=== PATIENT | male | born 1965 | race Caucasian/White ===

== ENCOUNTER 2020-07-22 12:40 | Emergency (ER) | payer SELFPAY ==
--- NOTE | 2020-07-22 13:07 | EDM.PDOC ---
ED HPI GENERAL MEDICAL PROBLEM - General Chief Complaint: Neurological Problem Stated Complaint: NUMBNESS IN FINGERS Time Seen by Provider: 07/22/20 12:49 Source of Information: Reports: Patient History Limitations: Reports: No Limitations - History of Present Illness INITIAL COMMENTS - FREE TEXT/NARRATIVE: HISTORY AND PHYSICAL: History of present illness: Patient is a 54-year-old male who presents to the emergency room with complaints of bilateral hand numbness and tingling intermittently over the past several weeks. His initial concern was that his hands were "swollen" as he has not been taking his medications over the past several days due to them running out (he travels with work, will be here 1 month). He has gone without medications for a week or two at a time and states this is "never happened before". Describes the sensation as his "hands are asleep" although he is still able to use them appropriately and sensation is the same bilaterally. Denies and one sided weakness or stroke like symptoms. States he has intermittent "chest fullness" but denies chest pain. Patient denies any fever, chills, headache, change in vision, syncope or near syncope. Denies any chest pain, back pain, shortness of breath or cough. Denies any abdominal pain, nausea, vomiting, diarrhea, constipation or dysuria. Has not noted any blood in urine or stool. Patient has been eating and drinking appropriately. Review of systems: As per history of present illness and below otherwise all systems reviewed and negative. Past medical history: As per history of present illness and as reviewed below otherwise noncontributory. Surgical history: As per history of present illness and as reviewed below otherwise noncontributory. Social history: See social history for further information Family history: As per history of present illness and as reviewed below otherwise noncontributory. Physical exam: General: Well developed and well nourished. Alert and orientated x 3. Nontoxic in appearance and in no acute distress. Vital signs are stable and have been reviewed by me. Nursing notes were reviewed. HEENT: Atraumatic, normocephalic, pupils equal and reactive bilaterally, negative for conjunctival pallor or scleral icterus, mucous membranes moist, TMs normal bilaterally, throat clear, neck supple, nontender, trachea midline. No drooling or trismus noted. No meningeal signs. No hot potato voice noted. Lungs: Clear to auscultation bilaterally. No wheezes, rales, or rhonchi. Chest nontender. Normal work of breathing, no accessory muscles used. Heart: S1S2, regular rate and rhythm without overt murmur, gallops, or rubs. No JVD. No peripheral edema Abdomen: Soft, nondistended, nontender. Normoactive bowel sounds. Negative for masses or costovertebral tenderness. Pelvis: Stable nontender. Genitourinary/Rectal: Deferred. Skin: Intact, warm, dry. No lesions or rashes noted. Hematologic: No petechiae or purpra. Mucosa appropriate color and normal nail bed color and refill. Extremities: Atraumatic, moves all extremities per self without difficulty or deficits, negative for cords or calf pain. Neurovascular unremarkable. Neuro: Awake, alert, oriented. Cranial nerves II through XII unremarkable. Cerebellum unremarkable. Motor and sensory unremarkable throughout. Exam nonfocal. Psychiatric: Mood and affect are appropriate. Normal thought process. Answering questions appropriately. Notes: *This patient was seen and evaluated during the 2019 SARS-CoV-2 novel coronavirus pandemic period. Community viral transmission is ongoing at time of this encounter and the emergency department is operating under pandemic response procedures. Patient's physical exam is within normal limits. He complains of the sensation of paresthesias to bilateral hands from the forearm downwards although he is able to grasp firmly and has good sensation bilaterally. He is adamant that he is concerned that he needs lab work done. We will do basic cardiac enzymes, EKG and chest x-ray. AST and ALT are slightly elevated. Chest x-ray is unremarkable. Vital signs are stable. The numbness and tingling sensation could be from the lack of medications, swelling or nerve impingement.. At this time I do not feel there is any further diagnostics warranted through the emergency room. I would like him to resume his home medications as directed and follow-up with primary care. I have talked with the patient about today's findings, in addition to providing specific details for plan of care. Reassessment at the time of disposition demonstrates that the patient is in no acute distress. The patient is stable for discharge, counseling was provided and we discussed in great detail signs and symptoms that would prompt them to return to the Emergency Department. Medication, follow up and supportive care measures were reviewed and discussed. Voices understanding and is agreeable to plan of care. Denies any further questions or concerns at this time. Diagnostics: CBC, CMP, Troponin, EKG, CXR, UA Therapeutics: None Prescription: Refill Home Meds: Lasix, Metformin, Carvedilol, Lisinopril Amiodarone Impression: Encounter for medication refill Paraesthesia Plan: 1. You were evaluated today on an emergent basis. Your lab work, chest x-ray, EKG are within normal limits. The numbness and tingling sensation could be from your lack of medications, swelling or nerve impingement. Please take your medications as directed. We are only able to give you a 2-week supply of your medications through an emergency room. You should follow up with your primary care provider for reevaluation and further management. 2. You can alternate Tylenol and ibuprofen as needed for pain and fever management. 3. If your symptoms should worsen, new symptoms develop or any of the signs and symptoms we discussed should arise please return to the emergency room or call 911 (if needed). Definitive disposition and diagnosis as appropriate pending reevaluation and review of above. 2 Pain Score (Numeric/FACES): 2 - Related Data Allergies Allergy/AdvReac Type Severity Reaction Status Date / Time No Known Allergies Allergy Verified 07/22/20 13:06 Home Meds: Home Meds Amiodarone HCl [Pacerone] 200 mg PO DAILY 07/22/20 [History] Amiodarone HCl [Pacerone] 200 mg PO DAILY 14 Days #14 tablet 07/22/20 [Rx] Furosemide [Lasix] 40 mg PO DAILY 07/22/20 [History] Furosemide [Lasix] 40 mg PO DAILY 14 Days #14 tablet 07/22/20 [Rx] carvediloL [Carvedilol] 6.25 mg PO BID 07/22/20 [History] carvediloL [Carvedilol] 6.25 mg PO BID 14 Days #28 tablet 07/22/20 [Rx] lisinopriL [Lisinopril] 5 mg PO DAILY 07/22/20 [History] lisinopriL [Lisinopril] 5 mg PO DAILY 14 Days #14 tablet 07/22/20 [Rx] metFORMIN [Glucophage] 500 mg PO BID 07/22/20 [History] metFORMIN [Glucophage] 500 mg PO BIDMEALS 14 Days #28 tab 07/22/20 [Rx] ED ROS GENERAL - Review of Systems Review Of Systems: Comprehensive ROS is negative, except as noted in HPI. ED EXAM, NEURO - Physical Exam Exam: See Below (See dictation) Course - Vital Signs Last Recorded V/S: Last Vital Signs Temp 97.3 F 07/22/20 12:59 Pulse 70 07/22/20 12:59 Resp 18 07/22/20 12:59 BP 126/73 07/22/20 12:59 Pulse Ox 97 07/22/20 12:59 - Orders/Labs/Meds Orders: Active Orders 24 hr Category Date Time Status EKG Documentation Completion [RC] STAT Care 07/22/20 13:02 Active Labs: Laboratory Tests 07/22/20 07/22/20 Range/Units 13:10 13:10 WBC 5.26 (4.0-11.0) K/uL RBC 4.14 L (4.50-5.90) M/uL Hgb 13.6 (13.0-17.0) g/dL Hct 40.7 (38.0-50.0) % MCV 98.3 H (80.0-98.0) fL MCH 32.9 H (27.0-32.0) pg MCHC 33.4 (31.0-37.0) g/dL RDW Std Deviation 47.9 (28.0-62.0) fl RDW Coeff of Preet 13 (11.0-15.0) % Plt Count 150 (150-400) K/uL MPV 10.90 (7.40-12.00) fL Neut % (Auto) 63.3 (48.0-80.0) % Lymph % (Auto) 21.3 (16.0-40.0) % [place] % (Auto) 11.2 (0.0-15.0) % Eos % (Auto) 3.4 (0.0-7.0) % Baso % (Auto) 0.8 (0.0-1.5) % Neut # (Auto) 3.3 (1.4-5.7) K/uL Lymph # (Auto) 1.1 (0.6-2.4) K/uL [place] # (Auto) 0.6 (0.0-0.8) K/uL Eos # (Auto) 0.2 (0.0-0.7) K/uL Baso # (Auto) 0.0 (0.0-0.1) K/uL Nucleated RBC % 0.0 /100WBC Nucleated RBCs # 0 K/uL Sodium 138 (136-148) mmol/L Potassium 4.3 (3.5-5.1) mmol/L Chloride 103 (98-107) mmol/L Carbon Dioxide 24.4 (21.0-32.0) mmol/L BUN 18 (7.0-18.0) mg/dL Creatinine 1.0 (0.8-1.3) mg/dL Est Cr Clr Drug Dosing 90.53 mL/min Estimated GFR (MDRD) > 60.0 ml/min Glucose 132 H (74-106) mg/dL Calcium 9.0 (8.5-10.1) mg/dL Total Bilirubin 0.9 (0.2-1.0) mg/dL AST 61 H (15-37) IU/L ALT 94 H (14-63) IU/L Alkaline Phosphatase 62 (46-116) U/L Troponin I < 0.050 (0.000-0.056) ng/mL Total Protein 7.2 (6.4-8.2) g/dL Albumin 3.5 (3.4-5.0) g/dL Globulin 3.7 (2.6-4.0) g/dL Albumin/Globulin Ratio 0.9 (0.9-1.6) Departure - Departure Time of Disposition: 14:00 Disposition: Home, Self-Care 01 Clinical Impression: Paresthesia, Encounter for medication refill - Discharge Information Prescriptions: carvediloL [Carvedilol] 6.25 mg PO BID 14 Days #28 tablet metFORMIN [Glucophage] 500 mg PO BIDMEALS 14 Days #28 tab Furosemide [Lasix] 40 mg PO DAILY 14 Days #14 tablet lisinopriL [Lisinopril] 5 mg PO DAILY 14 Days #14 tablet Amiodarone HCl [Pacerone] 200 mg PO DAILY 14 Days #14 tablet Instructions: Paresthesia, [id number] Referrals: PCP,None [Primary Care Provider] - Forms: ED Department Discharge Additional Instructions: The following information is given to patients seen in the emergency department who are being discharged to home. This information is to outline your options for follow-up care. We provide all patients seen in our emergency department with a follow-up referral. The need for follow-up, as well as the timing and circumstances, are variable depending upon the specifics of your emergency department visit. If you don't have a primary care physician on staff, we will provide you with a referral. We always advise you to contact your personal physician following an emergency department visit to inform them of the circumstance of the visit and for follow-up with them and/or the need for any referrals to a consulting specialist. The emergency department will also refer you to a specialist when appropriate. This referral assures that you have the opportunity for follow-up care with a specialist. All of these measure are taken in an effort to provide you with optimal care, which includes your follow-up. Under all circumstances we always encourage you to contact your private physician who remains a resource for coordinating your care. When calling for follow-up care, please make the office aware that this follow-up is from your recent emergency room visit. If for any reason you are refused follow-up, please contact the [facility] at and asked to speak to the emergency department charge nurse. [facility] [address] [place] [address] [place] [address] Thank you for choosing the [facility] emergency department in [place] for your medical needs today. It was a pleasure caring for you. Today you were seen in the emergency department for medication refill and paresthesia of bilateral hands. 1. You were evaluated today on an emergent basis. Your lab work, chest x-ray, EKG are within normal limits. The numbness and tingling sensation could be from your lack of medications, swelling or nerve impingement. Please take your medications as directed. We are only able to give you a 2-week supply of your medications through an emergency room. You should follow up with your primary care provider for reevaluation and further management. 2. You can alternate Tylenol and ibuprofen as needed for pain and fever management. 3. If your symptoms should worsen, new symptoms develop or any of the signs and symptoms we discussed should arise please return to the emergency room or call 911 (if needed). Sepsis Event Note (ED) - Focused Exam Vital Signs: Vital Signs Temp Pulse Resp BP Pulse Ox 07/22/20 12:59 97.3 F 70 18 126/73 97 - My Orders Last 24 Hours: My Active Orders 07/22/20 13:02 EKG Documentation Completion [RC] STAT - Assessment/Plan Last 24 Hours: My Active Orders 07/22/20 13:02 EKG Documentation Completion [RC] STAT
--- NOTE | 2020-07-22 13:22 | PCM.EKG ---
#1 Interpretation EKG Interpretation Comments: EKG: As interpreted by ER physician: Wilmer: Nonspecific ST-T wave abnormalities Normal axis No evidence of ST elevation MO Normal sinus rhythm with a heart rate of 57 with occasional PACs. Poor R wave progression consider anterior septal wall MO likely old.
--- NOTE | 2020-07-22 13:39 | CR ---
For Patients: As a result of the Cures Act, medical imaging exams and procedure reports are released immediately into your electronic medical record. You may view this report before your referring provider. If you have questions, please contact your health care provider. INDICATION: Hand numbness and tingling. TECHNIQUE: Chest 1 view. COMPARISON: None. FINDINGS: No focal consolidation, pleural effusion, or pneumothorax. Normal heart size and pulmonary vascularity. Sternotomy with mediastinal clips. The bones are unremarkable. IMPRESSION: No acute cardiopulmonary findings. Dictated by Samanta Hernandez MD @ 07/22/2020 1:38:[address] Samanta Hernandez @ Jul 22 2020 1:38PM
[2020-07-22 13:50] LABS: BLOOD UREA NITROGEN,BUN 18 mg/dL (7.0-18.0); CARBON DIOXIDE,CO2 24.4 mmol/L (21.0-32.0); CHLORIDE,CL 103 mmol/L (98-107); GLUCOSE RANDOM 132 mg/dL (74-106); POTASSIUM,K 4.3 mmol/L (3.5-5.1); SODIUM,NA 138 mmol/L (136-148)
== END 2020-07-22 14:22 | disposition home or self-care (01) ==
LOC: MW.ED 12:40
DX: R20.2 Paresthesia of skin (principal); Z76.0 Encounter for issue of repeat prescription
CPT/HCPCS: 36415; 71045; 71045-26; 80053; 84484; 85025; 93005; 99283; 99284-25